=== PATIENT | female | born 1930 | race Caucasian/White ===

== ENCOUNTER 2016-11-12 04:05 | Emergency (ER) | payer OTHER ==
[2016-11-12 04:31] LABS: BASOPHIL# 0.4 X 10^3uL (0.0-0.1); BASOPHILS 3.4 % (0.0-2.0); EOSINOPHILS 0.9 % (0.0-6.0); EOSINOPHILS# 0.1 X 10^3uL (0.0-0.4); HEMATOCRIT 36.1 % (36.0-48.0); HEMOGLOBIN 12.2 g/dL (12.0-16.0); LYMPHOCYTES 13.8 % (20.0-40.0); LYMPHOCYTES# 1.7 X 10^3uL (0.8-3.8); MEAN CORPUS. HGB CONCENTRATION 33.7 g/dL (32.0-36.0); MEAN CORPUSCULAR HEMOGLOBIN 32.7 pg (29.0-35.0); MEAN PLATELET VOLUME 8.8 fL (7.4-10.4); MONOCYTES# 0.8 X 10^3uL (0.2-1.0); NEUTROPHILS 74.9 % (54.0-75.0); NEUTROPHILS# 9.1 X 10^3uL (2.6-6.7); PLATELET COUNT 204 X 10^3uL (130-440); RED BLOOD COUNT 3.72 X 10^6uL (4.20-6.10); RED CELL DISTRIBUTION WIDTH 14.3 % (11.5-14.5); WHITE BLOOD COUNT 12.1 X 10^3uL (3.9-10.7)
[2016-11-12 04:45] LABS: ALBUMIN 3.6 g/dL (3.5-5.0); ALKALINE PHOSPHATASE 112 U/L (38-126); ALT 35 U/L (9-52); AST 31 U/L (14-36); BILIRUBIN, DIRECT 0.1 mg/dL (0.0-0.4); BILIRUBIN, TOTAL 0.6 mg/dL (0.2-1.3); BLOOD UREA NITROGEN 18 mg/dL (7-17); CALCIUM 8.8 mg/dL (8.4-10.2); CHLORIDE 92 mmol/L (98-107); GLUCOSE 109 mg/dL (70-100); LIPASE 51 U/L (23-300); POTASSIUM 3.9 mmol/L (3.5-5.1); SODIUM 127 mmol/L (137-145); TOTAL PROTEIN 6.9 g/dL (6.3-8.2)
[2016-11-12 05:02] LABS: PARTIAL THROMBOPLASTIN TIME 27 sec (24-38)
--- NOTE | 2016-11-12 05:49 | ER PHYSICIAN DOCUMENTATION ---
Physician Documentation [facility] Name:Anne Joyner Age:86 yrs Sex:Female :1930 Arrival Date:11/12/2016 Time:04:05 Bed4 Private MD:Ady Phillips ED, John Disposition: 11/12/16 05:08 Transfer ordered to [facility]. Diagnosis is GI Bleeding. - Reason for transfer: Specialty. - Accepting physician is Dr. Hernandez. - Condition is Fair. - Problem is new. - Symptoms are unchanged. COBRA Form completed? Transfer - Mode of Transportation Ambulance HPI: 11/12 04:27 This 86 yrs old Female presents to ER via Walk In with complaints of Bloody jm Stools. 04:27 The patient presents to the emergency department with rectal bleeding, a small amount. jm Onset: The symptom(s)/episode began/occurred today. Abdominal pain: none is appreciated. Modifying factors: the symptoms are aggravated by nothing. Associated signs and symptoms: Pertinent positives: dizziness at rest. Severity of symptoms: in the emergency department the symptoms are unchanged. The patient has experienced a previous episode. The patient has not recently seen a physician. bloody stools have been occurring for the past 3 days. Pt has noticed BRBPR and has abdominal cramps. Pt also feels dizzy. . Historical: - Allergies: SULFA (SULFONAMIDES); Prilosec; pravastation ; Nalfon; - Home Meds: 1. acetaminophen 500 mg oral tab 2. amlodipine 2.5 mg oral tab 3. Calcium Citrate Oral 4. Colace 100 mg oral cap 5. ferrous sulfate 325 mg (65 mg iron) oral tab 6. Flonase 50 mcg/actuation nasal spsn 7. furosemide 40 mg oral tab 8. Synthroid 25 mcg oral tab 9. losartan 50 mg oral tab 10. metoprolol tartrate 50 mg oral tab 11. Micro-K Oral 12. simvastatin 20 mg oral tab 13. tramadol 50 mg oral tab - Tetanus: < 10 years. - Ebola Screening: : Patient negative for fever greater than or equal to 101.5 degrees Fahrenheit, and additional compatible Ebola Virus Disease symptoms. Patient denies exposure to infectious person. Patient denies travel to an Ebola-affected area in the 21 days before illness onset. No symptoms or risks identified at this time. . - Immunization history: Flu Vaccine < 1 year. - Social history: Smoking status: Patient states was never smoker of tobacco. ROS: 04:28 Constitutional: Positive for fatigue. jm 04:28 ENT: Negative for sinus congestion, sinus pain, sore throat. 04:28 Cardiovascular: Negative for chest pain, palpitations. 04:28 Respiratory: Negative for cough, shortness of breath. 04:28 Abdomen/GI: Positive for abdominal cramps, rectal bleeding, Negative for rectal pain. 04:28 Neuro: Positive for dizziness, weakness. 04:28 All other systems are negative. Exam: 04:29 Constitutional: The patient appears alert, awake, comfortable, obese. jm 04:29 Eyes: Periorbital structures: appear normal, Extraocular movements: intact throughout. 04:29 ENT: Mouth: is normal, Voice: is normal. 04:29 Neck: Thyroid: appears normal, Trachea: is midline with no obvious abnormalities. 04:29 Cardiovascular: Rate: normal, Rhythm: regular. 04:29 Respiratory: Respirations: normal, Breath sounds: are normal. 04:29 Abdomen/GI: Bowel sounds: normal, Palpation: mild abdominal tenderness, in the suprapubic area, right lower quadrant and left lower quadrant, Rectal exam: hemorrhoid(s), are not appreciated, without bleeding. 04:29 Back: pain, is absent, CVA tenderness, is absent. 04:29 Skin: Appearance: Color: pink, no rash present. 04:29 Neuro: Mentation: is normal, Memory: is normal. 04:29 Psych: Behavior/mood is pleasant, cooperative, Affect is calm. Vital Signs: 04:11 BP 148 / 87; Pulse 73; Resp 18; Temp 98(O); Pulse Ox 95% ; Weight 63.5 kg (R); Height 5 bw2 ft. 3 in. (160.02 cm); Pain 5/10; 05:13 BP 111 / 58; Pulse 66; Resp 18; Pulse Ox 98% ; bw2 05:46 BP 114 / 60; Pulse 77; Resp 18; Temp 98; Pulse Ox 95% ; bw2 04:11 Body Mass Index 24.80 (63.50 kg, 160.02 cm) bw2 MDM: 04:13 Patient medically screened. jm 04:35 Differential diagnosis: diverticulitis, hemorrhoids. jm 04:38 Data reviewed: vital signs, nurses notes, old medical records, lab test result(s), and jm as a result, I will discharge patient. Counseling: I had a detailed discussion with the patient and/or guardian regarding: the historical points, exam findings, and any diagnostic results supporting the discharge/admit diagnosis, lab results, the need for outpatient follow up. ED course: No Hemorrhoids noted on exam. Pt w darker red blood on finger examination. . 05:05 Physician consultation: Dr. Hernandez was called at 17:45, was contacted at 17:55, and terry will see patient later today, accepted transfer to [facility]. ED course: Pt some darker blood on digital exam. Pt will need transfer for further work up. . 11/12 04:37 Order name: CBC AUTO DIF, MDIF/RMOR IF IND; Complete Time: 05:05 [facility] 11/12 04:48 Order name: BASIC METABOLIC PANEL; Complete Time: 05:05 [facility] 11/12 04:48 Order name: HEPATIC PANEL; Complete Time: 05:05 [facility] 11/12 04:48 Order name: LIPASE; Complete Time: 05:05 [facility] 11/12 05:03 Order name: PROTIME/INR; Complete Time: 05:05 [facility] 11/12 05:03 Order name: PARTIAL THROMBOPLASTIN TIME; Complete Time: 05:05 [facility] 11/12 04:21 Order name: Continuous Cardiac Monitoring; Complete Time: 04:32 11/12 04:21 Order name: Hemocult Stool; Complete Time: 04:32 11/12 04:21 Order name: I & O; Complete Time: 04: 11/12 04:21 Order name: NPO; Complete Time: 04: 11/12 04:21 Order name: Pulse Ox Continuous; Complete Time: 04: Dispensed Medications: No medications were administered Signatures: Grant Madrigal MD MD jm Wisely, [facility]
--- NOTE | 2016-11-12 05:49 | ER NURSING DOCUMENTATION ---
Nurse's Notes [facility] Name:Anne Joyner Age:86 yrs Sex:Female :1930 Arrival Date:11/12/2016 Time:04:05 Bed4 Private MD:Ady Phillips Diagnosis:GI Bleeding Presentation: 11/12 04:07 Presenting complaint: Patient states: pt states she has had stools with blood in it bw2 since Friday. pt complains of lower abdominal pain. no vomiting. Transition of care: patient was not received from another setting of care. 04:07 Method Of Arrival: Walk In bw2 04:07 Acuity: RABIA 2 bw2 Triage Assessment: 04:11 General: Appears in no apparent distress, Behavior is agitated, anxious, appropriate bw2 for age. Pain: Complains of pain in lower abdominal. Historical: - Allergies: SULFA (SULFONAMIDES); Prilosec; pravastation ; Nalfon; - Home Meds: 1. acetaminophen 500 mg oral tab 2. amlodipine 2.5 mg oral tab 3. Calcium Citrate Oral 4. Colace 100 mg oral cap 5. ferrous sulfate 325 mg (65 mg iron) oral tab 6. Flonase 50 mcg/actuation nasal spsn 7. furosemide 40 mg oral tab 8. Synthroid 25 mcg oral tab 9. losartan 50 mg oral tab 10. metoprolol tartrate 50 mg oral tab 11. Micro-K Oral 12. simvastatin 20 mg oral tab 13. tramadol 50 mg oral tab - Tetanus: < 10 years. - Ebola Screening: : Patient negative for fever greater than or equal to 101.5 degrees Fahrenheit, and additional compatible Ebola Virus Disease symptoms. Patient denies exposure to infectious person. Patient denies travel to an Ebola-affected area in the 21 days before illness onset. No symptoms or risks identified at this time. . - Immunization history: Flu Vaccine < 1 year. - Social history: Smoking status: Patient states was never smoker of tobacco. Screenin:25 Infectious Disease Risk None. Abuse screen: Denies threats or abuse. Nutritional bw2 screening: No deficits noted. Assessment: 04:25 See Triage Assessment done by same RN. Respiratory: No deficits noted. bw2 Vital Signs: 04:11 BP 148 / 87; Pulse 73; Resp 18; Temp 98(O); Pulse Ox 95% ; Weight 63.5 kg (R); Height 5 bw2 ft. 3 in. (160.02 cm); Pain 5/10; 05:13 BP 111 / 58; Pulse 66; Resp 18; Pulse Ox 98% ; bw2 05:46 BP 114 / 60; Pulse 77; Resp 18; Temp 98; Pulse Ox 95% ; bw2 04:11 Body Mass Index 24.80 (63.50 kg, 160.02 cm) bw2 ED Course: 04:06 Patient arrived in ED. em2 04:06 Ady Phillips DO is Private Physician. em2 04:07 Sheryl Parekh is Primary Nurse. bw2 04:08 Triage completed. bw2 04:12 Notified ED Physician of patient's arrival and chief complaint. Dr. Madrigal notified. bw2 04:13 Grant Madrigal MD is Attending Physician. 04:25 Valuables Remains with patient Patient has correct armband on for positive bw2 identification. Placed in gown. Bed in low position. Side rails up X2. satellite project site monitor on. Pulse ox on. NIBP on. 04:25 Inserted peripheral IV: 20 gauge in left antecubital area and blood collected. bw2 04:32 Assist Provider rectal exam. bw2 Administered Medications: No medications were administered Outcome: 05:08 ER care complete, transfer ordered by . terry 05:12 Transferred: Patient will be transferred to: [facility]. Facility bw2 Acceptance Time: November 12, 2016 at 05:12 Patient's face sheet was faxed to accepting facility. Face Sheet included patient's name, address, age, gender, contact information and insurance information. Patient will be transported by: [facility] ground. Nurse and Physician Charting and Notes were sent to Accepting Facility. All tests and/or procedures with results, if applicable, were sent to accepting facility. 05:46 Transferred: Report called to: [facility] bw2 05:46 Condition: stable 05:46 Discharge Assessment: Patient awake, alert and oriented x 3. No cognitive and/or functional deficits noted. Patient verbalized understanding of disposition instructions. 05:47 Instructed on need for transfer bw2 05:47 Patient left the ED. bw2 Signatures: Grant Madrigal MD MD jm Meinking-reg, Darlene-reg em2 Sheryl Parekh bw2
== END 2016-11-12 05:48 | disposition short-term general hospital (02) ==
LOC: ER 04:05
DX: K92.1 Melena (principal); R42 Dizziness and giddiness; R53.83 Other fatigue; R53.1 Weakness; R10.84 Generalized abdominal pain; Z79.899 Other long term (current) drug therapy
CPT/HCPCS: 80048; 80076; 83690; 85025; 85610; 85730; 99285; A0425; A0429